=== PATIENT | female | born 1960 | race Two or more races ===

== ENCOUNTER 2023-07-17 05:20 | Day surgery (SDC) | payer OTHER ==
[~2023-07-17 05:20] MED LIST: ALTACE5 MG PO; CRESTOR5 MG PO
[2023-07-17] MEDS ORDERED: ACETAMINOPHEN500 M2 PO (07:47)
== END 2023-07-17 13:15 | disposition home or self-care (01) ==
LOC: CIR.AMB 05:20
PROVIDERS: ATTEND Surgery
DX: D12.8 Benign neoplasm of rectum (principal); K62.89 Other specified diseases of anus and rectum; Z20.822 Contact with and (suspected) exposure to COVID-19; E78.5 Hyperlipidemia, unspecified; I10 Essential (primary) hypertension